=== PATIENT | female | born 2000 | race Caucasian/White ===

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

== ENCOUNTER 2022-05-19 18:04 | Emergency (ER) | payer OTHER ==
[~2022-05-19] VITALS: Ht 172.7 cm; Wt 104.8 kg
[~2022-05-19 18:04] MED LIST changes: +ONDA-188 SL; +TAM75 PO
[2022-05-19 18:36] VITALS: BP 129/74
--- NOTE | 2022-05-19 19:22 | NUR ---
URINE WALKED TO LAB.
[2022-05-19 19:40] LABS: BASOPHILS % (AUTO) 0.3 % (0.0-2.0); EOSINOPHILS # (AUTO) 0.1 K/uL (0-0.4); EOSINOPHILS % (AUTO) 0.6 % (0.0-4.0); HEMATOCRIT 36.9 % (36-48); HEMOGLOBIN 11.8 g/dL (12.0-16.0); LYMPHOCYTES # (AUTO) 2.2 K/uL (2.5-16.5); LYMPHOCYTES % (AUTO) 18.1 % (20.5-51.1); MEAN CORPUSCULAR HEMOGLOBIN 26 pg (27-31); MEAN CORPUSCULAR HGB CONC 32 g/dL (33-37); MEAN CORPUSCULAR VOLUME 81.7 fL (80-94); MONOCYTES # (AUTO) 0.5 K/uL (0.8-1.0); MONOCYTES % (AUTO) 3.9 % (1.7-9.3); NEUTROPHILS # (AUTO) 9.4 K/uL (1.8-7.7); NEUTROPHILS % (AUTO) 77.1 % (42.2-75.2); PLATELET COUNT (AUTO) 275 K/uL (140-450); RED BLOOD CELL COUNT(AUTO) 4.51 MIL/uL (4.20-5.40); RED CELL DISTRIBUTION WIDTH 15.2 % (11.6-13.7); WHITE BLOOD COUNT (AUTO) 12.2 K/uL (4.5-11.0)
[2022-05-19 20:16] LABS: APPEARANCE,URINE CLEAR (CLEAR); BILIRUBIN,URINE NEGATIVE (NEGATIVE); BLOOD, URINE 1+ (NEGATIVE); COLOR,URINE YELLOW (YELLOW); LEUKOCYTE ESTERASE ,URINE NEGATIVE (NEGATIVE); NITRITE, URINE NEGATIVE (NEGATIVE); UGLUCOSE NEGATIVE (NEGATIVE)
[2022-05-19 20:28] LABS: ALBUMIN 4.3 g/dL (3.4-5.0); ANION GAP 14.1 (8-16); ASPARTATE AMINOTRANSFERASE 16 U/L (15-37); CHLORIDE 103 mmol/L (98-107); CREATININE 0.9 mg/dL (0.6-1.3); GFR ARICAN-AMERICAN 104 mL/min (>90); GLUCOSE 103 mg/dL (74-106); LIPASE 78 U/L (73-393); POTASSIUM 4.1 mmol/L (3.5-5.1); SODIUM SERUM 140 mmol/L (136-145); TOTAL BILIRUBIN 0.3 mg/dL (0.0-1.0); UREA NITROGEN, BLOOD 13 mg/dL (7-18)
--- NOTE | 2022-05-19 22:17 | NUR ---
PT TO BED #7
--- NOTE | 2022-05-19 22:17 | NUR ---
Pt is here to get evaluation because she been feeling nauseated for a week and attempt to eat multiple times but she keep vomitting. Alert and oriented x 4.
[2022-05-19] MEDS ORDERED: DICYCLOMINE HCL LIQUID 20 MG, ALUMINUM HYD/MAG/SIMETHICONE 30 ML, LIDOCAINE VISCOUS 2% ... PO ONE ×3 (22:30)
[2022-05-19] MEDS ORDERED: ONDANSETRON 4 MG ODT PO ONE (22:35)
[2022-05-19] MEDS ORDERED: DICYCLOMINE HCL LIQUID 10 MG/5 ML UDC ONE (23:01)
[2022-05-19] MEDS ORDERED: ALUMINUM HYD/MAG/SIMETHICONE 30 ML UDC ONE (23:01)
[2022-05-19 23:29] LABS: WBC,URINE 0-5 /HPF (0-5)
[2022-05-19] MEDS ORDERED: KETOROLAC 30 MG/ML VIAL IM ONE (23:30)
--- NOTE | 2022-05-19 23:48 | NUR ---
she is vomitting at this moment. I notified the
[2022-05-19] MEDS ORDERED: NACL 0.9% 1,000 ML IV ONE (23:50)
[2022-05-19] MEDS ORDERED: ONDANSETRON 4 MG/2 ML VIAL IVP ONE (23:50)
--- NOTE | 2022-05-20 | NUR ---
pt is vomitting again
--- NOTE | 2022-05-20 00:53 | NUR ---
pt is complaining pain in her stomach
[2022-05-20] MEDS ORDERED: MAG-27 PO (03:14)
[2022-05-20] MEDS ORDERED: BEN10 PO (03:14)
[2022-05-20 04:16] VITALS: BP 129/74
--- NOTE | 2022-05-20 04:18 | NUR ---
Patient discharged with v/s stable. Written and verbal after care instructions given and explained. Patient verbalized understanding. Ambulatory with steady gait. All questions addressed prior to discharge. Advised to follow up with PMD. Pt left with his belongings.
== END 2022-05-20 04:18 | disposition home or self-care (01) ==
LOC: MED 18:04
DX: R10.13 Epigastric pain (principal); R11.2 Nausea with vomiting, unspecified
CPT/HCPCS: 36415; 74176; 76705; 80053; 81001; 81025; 83690; 85025; 96361; 96372; 96374; 99285; J1885; J2405; J7030; Q0162

== ENCOUNTER 2023-01-22 14:34 | Emergency (ER) | payer OTHER ==
[~2023-01-22] VITALS: Ht 167.6 cm; Wt 81.6 kg
[~2023-01-22 14:34] MED LIST changes: +BEN10 PO; +MAG-27 PO
[2023-01-22 14:55] VITALS: BP 136/63; PULSE 104; RESP 18; TEMP 97; O2SAT 98
[2023-01-22] MEDS ORDERED: ONDANSETRON 4 MG/2 ML VIAL IVP ONE (16:05)
[2023-01-22] MEDS ORDERED: NACL 0.9% 1,000 ML IV ONE ×2 (16:05→17:20)
[2023-01-22 16:29] LABS: BASOPHILS % (AUTO) 0.2 % (0.0-2.0); EOSINOPHILS # (AUTO) 0.1 K/uL (0-0.4); HEMATOCRIT 38.6 % (36-48); HEMOGLOBIN 12.6 g/dL (12.0-16.0); LYMPHOCYTES # (AUTO) 1.2 K/uL (2.5-16.5); LYMPHOCYTES % (AUTO) 17.4 % (20.5-51.1); MEAN CORPUSCULAR HEMOGLOBIN 26 pg (27-31); MEAN CORPUSCULAR HGB CONC 33 g/dL (33-37); MEAN CORPUSCULAR VOLUME 80.2 fL (80-94); MONOCYTES # (AUTO) 0.5 K/uL (0.8-1.0); MONOCYTES % (AUTO) 7.2 % (1.7-9.3); NEUTROPHILS # (AUTO) 5.2 K/uL (1.8-7.7); NEUTROPHILS % (AUTO) 74.2 % (42.2-75.2); PLATELET COUNT (AUTO) 208 K/uL (140-450); RED BLOOD CELL COUNT(AUTO) 4.82 MIL/uL (4.20-5.40); RED CELL DISTRIBUTION WIDTH 15.5 % (11.6-13.7)
[2023-01-22 16:46] LABS: ALBUMIN 3.9 g/dL (3.4-5.0); CALCIUM 8.7 mg/dL (8.5-10.1); CARBON DIOXIDE 28.8 mmol/L (21-32); CREATININE 1.1 mg/dL (0.6-1.3); POTASSIUM 3.8 mmol/L (3.5-5.1); TOTAL BILIRUBIN 0.4 mg/dL (0.0-1.0); TOTAL PROTEIN, SERUM 8.2 g/dL (6.4-8.2)
[2023-01-22] MEDS ORDERED: KETOROLAC 30 MG/ML VIAL IVP ONE (17:10)
[2023-01-22 17:18] LABS: APPEARANCE,URINE SL CLOUDY (CLEAR); BILIRUBIN,URINE NEGATIVE (NEGATIVE); BLOOD, URINE TRACE-I (NEGATIVE); COLOR,URINE YELLOW (YELLOW); LEUKOCYTE ESTERASE ,URINE NEGATIVE (NEGATIVE); NITRITE, URINE NEGATIVE (NEGATIVE); PH,URINE 6.5 (5.0-9.0); PROTEIN,URINE NEGATIVE (NEGATIVE); UGLUCOSE NEGATIVE (NEGATIVE); UROBILINOGEN,URINE 0.2 EU/dL (0.2 - 1)
[2023-01-22 17:27] LABS: BACTERIA,URINE FEW /HPF (None Seen); MUCUS,URINE 2+ /LPF (None Seen); RBC,URINE 0-5 /HPF (0-5); SQUAMOUS EPITHELIAL CELL,UR 20-50 /LPF (0-3 (FEW)); TRICHOMONAS,URINE None Seen /HPF (None Seen); WBC,URINE 0-5 /HPF (0-5); YEAST,URINE None Seen /HPF (None Seen)
[2023-01-22] MEDS ORDERED: ONDA-188 PO (17:49)
[2023-01-22] MEDS ORDERED: FAMO10TA41 PO (17:49)
[2023-01-22] MEDS ORDERED: METO-485 PO (17:49)
[2023-01-22 18:05] LABS: FLU A ANTIGEN negative (NEGATIVE); FLU B ANTIGEN negative (NEGATIVE)
[2023-01-22 18:09] VITALS: BP 101/68; PULSE 72; RESP 16; TEMP 97; O2SAT 100
== END 2023-01-22 18:09 | disposition home or self-care (01) ==
LOC: MED 14:34
DX: U07.1 COVID-19 (principal); Z79.899 Other long term (current) drug therapy; Z79.1 Long term (current) use of non-steroidal anti-inflammatories (NSAID)
CPT/HCPCS: 36415; 80053; 81001; 81025; 83690; 85025; 87426; 87804; 96361; 96374; 96375; 99284; J1885; J2405; J7030